=== PATIENT | female | born 1980 | race Caucasian/White ===

== ENCOUNTER 2022-08-04 11:09 | Day surgery (SDC) | payer MEDICAID, SELFPAY ==
--- NOTE | 2022-08-03 13:58 | HP.PCM_ITS ---
History and Physical Date of Admission: 08/04/22 HPI: The patient is a 41 year old female presenting for pre-operative visit. She is scheduled for Hysteroscopy D&C, Mirena IUD insertion for abnormal uterine bleeding and endometrial polyps on 08/04/22. Procedure discussed along with risks, benefits and complications. Other alternatives discussed for management. Consent form signed? Yes. ? ? PAST MEDICAL HISTORY PAST MEDICAL HISTORY Diagnosis Date ? Behcet's syndrome (HCC) ? ? Disorder of bone and cartilage, unspecified ? ? Hypertension ? ? Nodular scleritis ? ? Other cataract ? ? Left Eye ? Panuveitis ? ? Papilledema ? ? PMH - PAST MEDICAL HISTORY OF ? ? Severe thoracolumbar kyphoscoliosis ? PMH - PAST MEDICAL HISTORY OF ? ? intractable pain syndrome ? ? PAST SURGICAL HISTORY PAST SURGICAL HISTORY Procedure Laterality Date ? DELIVERY ONLY ? 10/08 ? Primary LTCS d/t spine problems ? CHOLECYSTECTOMY ? 2002 ? Laprascopic ? MIDLINE INSERTION/CONSULT ? 07/21/2015 ? ? MIDLINE INSERTION/CONSULT ? 01/26/2016 ? ? PAST SURGICAL HISTORY OF ? 09/13/06 ? Right thoracotomy, harvest of rib for rib graft, and thoracic spine exposure. ? PAST SURGICAL HISTORY OF ? 09/13/06 ? Posterior thoracic osteotomies T5-T6, T6-T7, T7-T8, T8-T9, T10- T11, T11- T12, and T12-L1; Posterior spinal fusion T4-L2; Local graft harvest; Pedicle screw placement T4, T5, T6, T7, T8, T9, T11, T12, L1, and L2. ? PAST SURGICAL HISTORY OF ? 2005 ? Anterior spinal osteotomies T4-5, T5-6, T6-7, T7-8, T8-9, T9-10, T10-11, and T11-12; Anterior spinal fusion T4-5 through T11-12; Rib graft harvest; Transthoracic approach with assistance of Thoracic Surgery. ? ? ? CURRENT MEDICATIONS Current Outpatient Medications Medication Sig Dispense Refill ? norethindrone (AYGESTIN) 5 mg tablet Take 1 tablet TID until bleeding stops, the BID x 3 days, the daily x 3 days. 35 tablet 0 ? tiZANidine (ZANAFLEX) 4 mg tablet Take 1 tablet by mouth every 8 hours as needed. 90 tablet 0 ? levothyroxine (SYNTHROID) 75 mcg tablet ? QUEtiapine XR (SEROQUEL XR) 50 mg Tb24 Take 50 mg by mouth daily at bedtime. ? ? ? azaTHIOprine (IMURAN) 50 mg tablet TAKE 2 TABLETS BY MOUTH IN THE MORNING AND 1 TABLET AT NIGHT 90 tablet 3 ? calcium carbonate/vitamin D3 (CALCIUM 600 + D ORAL) Take by mouth once daily. ? ? ? cetirizine HCl (ZYRTEC) 10 mg chewable tablet Take 10 mg by mouth once daily. ? ? ? losartan (COZAAR) 50 mg tablet ? atorvastatin (LIPITOR) 20 mg tablet Take 20 mg by mouth once daily. ? ? ? ibuprofen (MOTRIN) 600 mg tablet Take 1 tablet by mouth three times daily as needed. ? ? ? tiZANidine (ZANAFLEX) 4 mg tablet Take 1 tablet by mouth twice daily as needed. (Patient not taking: No sig reported) 60 tablet 0 ? No current facility-administered medications for this visit. ? ? ALLERGIES: Demerol [Meperidine (Pf)], Keflex [Cephalexin], Peanut Butter Flavor, and Penicillins ? PERSONAL HISTORY: SOCIAL HISTORY Social History ? Tobacco Use ? Smoking status: Never ? Smokeless tobacco: Never ? Tobacco comments: ? ? denies smoking Vaping Use ? Vaping Use: Never used Substance Use Topics ? Alcohol use: No ? Drug use: No ? FAMILY HISTORY: FAMILY HISTORY FAMILY HISTORY Adopted: Yes Family history unknown: Yes ? ? REVIEW OF SYMPTOMS: GENERAL: denies fevers or chills ENDOCRINOLOGY: has not been on steroids Cardiology : denies palpitations or chest pain Respiratory: denies SOB or cough Hematology: denies history of prolonged bleeding or easy bruising or VTE Allergy: Denies history of personal or family history of allergy to anesthesia ? PHYSICAL EXAMINATION: ? VITALS: Blood pressure 146/98, pulse 119, resp. rate 18, height 5' 6 (1.676 m), weight (!) 319 lb (144.7 kg), last menstrual period 08/02/2022, SpO2 98 %. ? GENERAL: The patient is well nourished, well hydrated in no acute distress. , The patient is oriented to time, place, and person. NECK: Supple. No lynphadenopathy, normal thyroid, no thyromegaly. LUNGS: Clear to auscultation bilaterally. no wheezes, rhonchi or rales HEART: Regular rate and rhythm, Normal heart sounds, and No murmurs or gallops ? IMPRESSION: Abnormal uterine bleeding, endometrial polyps ? PLAN: The risks/benefits/alternatives and personal involved for the planned hysteroscopy D&C with polyp resection and Mirena IUD insertion were reviewed with the patient. Her questions were answered to her satisfaction and she desires to proceed. Consent was signed. I reviewed with her postop instructions and expectations. ? ? I have reviewed and updated past medical and surgical history, medications and allergies Assessment & Plan Assessment/Plan (1) Abnormal uterine bleeding (AUB): (2) Endometrial polyp:
[2022-08-04] VITALS (7 sets, daily range): BP systolic 129–166; BP diastolic 66–81; PULSE 71–106; RESP 16–18; TEMP 36.4–37.1; O2SAT 92–99; BMI 53.1
--- NOTE | 2022-08-04 | IMM_PTH ---
PATIENT: FLORENCIO TOMPKINS LOC: [facility] [place] U#:[id number] AGE/SX: 41/F ROOM: RE08/04/[address]: Dr. Meghna Brambila MD : 1980 BED: DIS: 08/04/2022 SPEC #: [id number] RECD: 08/08/22 13:52 STATUS: JUD REQ #: [id number] LISS: 08/04/22 00:[address]: Meghna Brambila DEPT: IMMUNOHISTOCHEMISTRY RECD BY: Vonda Lane ENTERED: 08/08/22 13:53 SP TYPE: IMMUNO OTHR DR: Kadi Crow, TELERADIOLOGIST-C Tissues: Endometrium, NOS Procedures: MSH2 (add) MLH-1 (add) MSH6 (add) Anti-PMS2 (add) KI-67 (add) P53 (add) HER-2-LAWANDA (initial) PHYSICIAN & INSTITUTION [place] [id number] SPECIMEN INFORMATION: Tissue Source: Endometrial curettings Clinical Info: Abnormal uterine bleeding and endometrial polyps Specimen Number: [id number] #7 CPT code: 27773, 46002 x6 METHODOLOGY: Deparaffinized sections of prefer/formalin-fixed tissue or PAP/DQ stained slides are incubated with monoclonal/polyclonal antibodies/oligonucleotide probes. Localization is made via biotin free immunoperoxidase method. Appropriate controls are performed and reacted as expected. Results on target cell population are indicated in the following table: RESULTS: ANTIBODY / CLONE RESULT Her-2neu (CB11) negative (0) MLH-1 (M1) positive MSH2 (25D12) positive MSH6 (44) positive PMS2 (AEX7942) positive Ki-67 (30-9) negative P53 (DO-7) positive, low These tests were developed and their performance characteristics determined by [facility]. They may not have been cleared or approved by the U.S. Food and Drug Administration. The FDA has determined that such clearance or approval is not necessary. The above immunohistochemical/dualISH markers are ordered and reviewed by the Pathologist. INTERPRETATION: Endometrial curettings: Endometrial adenocarcinoma. Result of Microsatellite Instability Study: Negative (no loss of mismatch protein; no microsatellite instability detected). STEPHANIE:elmer 08/09/2022
[2022-08-04] MEDS: Lactated Ringers 1,000 ML 15 ML IV (12:28)
--- NOTE | 2022-08-04 12:55 | EMB_PTH ---
PATIENT: FLORENCIO TOMPKINS LOC: [facility] [place] U#:[id number] AGE/SX: 41/F ROOM: RE08/04/[address]: Dr. Meghna Brambila MD : 1980 BED: DIS: 08/04/2022 SPEC #: [id number] RECD: 08/04/22 15:01 STATUS: JUD HUTCHINS #: [id number] LISS: 08/04/22 12:[address]: Meghna Brambila DEPT: SURGICAL PATHOLOGY RECD BY: Katie Moya ENTERED: 08/05/22 09:54 SP TYPE: ENDOM BX/C SHRAVAN DR: Kadi Crow, SYDNEE Tissues: Endometrium, NOS Procedures: Surgery Specimen Level IV HEADER OPERATION: Hysteroscopy, D & C Symphion, polyp resection, IUD insertion PRE-OP DIAGNOSIS: Abnormal uterine bleeding and endometrial polyps TISSUE SUBMITTED: Endometrial curettings MICROSCOPIC DIAGNOSIS Endometrial curettings: Well-differentiated endometrial adenocarcinoma arising in the background of extensive complex hyperplasia with atypia. See comment. STEPHANIE:elmer 08/08/2022 COMMENT The tumor also shows focal villoglandular pattern. Extensive exogenous hormone effect is also noted. A few fragments of myometrium are also present. Immunohistochemistry ([id number]) for microsatellite instability (mismatch repair of protein) will be performed and the results will be reported separately. Case has been reviewed in consultation with Dr. Olvera who concurs with the above diagnosis. IDC:AM MICROSCOPIC DESCRIPTION Slides are reviewed. GROSS DESCRIPTION Received in fixative is one container labeled with the patient's name and designated endometrial curettings. The specimen consists of multiple irregular fragments of hayden soft tissue mixed with hayden polypoid tissue and numerous blood clots that in aggregate measure 8 x 6 x 3 cm. The entire specimen is submitted in 17 cassettes. / STEPHANIE:elmer 08/05/2022 TC:0 CPT: 58756
[2022-08-04 13:05] LABS: Internal QC Validated? YES +Cl - CLEAR BKGD; Pregnancy, Serum, hCG Quali. NEGATIVE Negative
--- NOTE | 2022-08-04 13:44 | DCINST_ITS ---
Discharge Instructions Diet Discharge Diet: No restrictions Activity Discharge Activity: Return to Normal Activity, May Shower and May Take a Tub Bath (1 week) May resume sexual activity in: 1 week Lifting Restrictions: none Dressing / Incision Call your doctor if your incision/area has: Sudden Increased Bleeding and Foul Smelling Discharge Call your doctor if you observe: Fever of 101 or Higher and Using more than 1 pad per hour (for 2 hrs in a row) Follow Up Care Please Follow Up With: Meghna Brambila MD When: as needed. Call [phone] to make an appointment or with any concerns. Test Results: Test results from this visit will be discussed in further detail at your follow- up appointment, if applicable. Discharge Plan Admission Primary Reason for Your Visit: D&C with polyp resection and Mirena IUD insertion Attending Provider: Meghna Brambila Primary Care Provider: Kadi Crow Discharge Orders/Prescriptions Prescriptions: No Action levothyroxine 50 mcg capsule 50 mcg PO DAILY quetiapine [Seroquel] 50 mg tablet 50 mg PO DAILY albuterol sulfate [Ventolin HFA] 90 mcg/actuation HFA aerosol inhaler 2 puff inhalation Q6H PRN (Reason: breathing) fluticasone propionate [Flonase Allergy Relief] 50 mcg/actuation spray,suspension 1 spray intranasal DAILY Rx Instructions: administer into each nostril atorvastatin 20 mg tablet 20 mg PO QHS cetirizine 10 mg tablet 10 mg PO DAILY losartan 50 mg tablet 50 mg PO DAILY ibuprofen 600 mg tablet 600 mg PO Q6H PRN (Reason: Pain) tizanidine 4 mg capsule 4 mg PO BID apple cider vinegar 600 mg capsule 1,600 mg PO DAILY Referrals / Follow Up: Kadi Crow, BEDSPREAD FOLDER-C [Primary Care Provider] - Disposition Disposition (needs filled in before D/C Order can be placed): Home, Self Care
[2022-08-04] MEDS: Lidocaine 1% /Epi 1:100 (20ml) 20 ML Vial (14:19)
[2022-08-04] MEDS: Lubricating Jelly 60 GM Tube 30 GM (14:19)
--- NOTE | 2022-08-04 14:56 | OP.PCM_ITS ---
Problems Associated Problem List Diagnoses (1) Endometrial polyp: (2) Abnormal uterine bleeding (AUB): Report of Operation Date of Procedure: 08/04/22 Pre-Operative Diagnosis: aub, endometrial polyps Post-Operative Diagnosis: same Surgery/Procedure Performed:: Hysteroscopy D&C with polyp resection and Mirena IUD insertion Description of Surgical Findings:: Lush thickened polypoid, ragged endometriu. NOrmal cervix and vagina Surgeon: Meghna Brambila computerized mill mill recorder: None Type of Anesthesia: MAC/Supplemental/Local Anesthesiologist: Rahat Oreilly Special Medications: none Specimen's removed: endometrial curettings and poolyp Drains: none Estimated Blood Loss (mL): 100 Fluids Replaced: 700 Description of Procedure: The patient was taken to the OR where she was prepped and draped in dorsal lithotomy position. The weighted speculum was placed in the vagina and the anterior lip of the cervix was grasped with a single-tooth tenaculum. A paracervical block was administered with [1% lidocaine with 1-100,000 epinephrine solution]. The cervix was dilated serially with Hegar dilators. The symphion hysteroscope was placed into the uterine cavity and the above findings were noted. Bilateral tubal ostia [were] identified. The hysteroscope was removed. The symphion device was readied and inserted. The polypoid appearing tissue and ragged endometrium were resected with significant device. There is still a large amount of tissue and a gentle sharp curettage was done. The Mirena IUD was then inserted in the usual sterile fashion and the strings cut to 3 cm. It should be noted that the cervix was very large and patulous minimal dilation needed to be done. I actually had some difficulty blocking off the cervical os so the hysteroscopic fluid would inflate the uterus.. The instruments were removed from the vagina. The specimen was handed off and sent to pathology. All sponge and needle counts were correct. Vaginal sweep was performed by me. The patient was awakened and taken to the recovery room in stable condition. Calculated fluid deficit is 400 cc of normal saline. Grafts/Implants Used: Mirena IUD lot [id number] exp 08/2024 Procedure Start Time: 14:19 Procedure Stop Time: 14:35 Complications none Admit VTE Documentation VTE Present on Admission: No VTE Mechan Device Prophylaxis: SCD's VTE Pharm Prophylaxis ordered?: No
== END 2022-08-04 16:28 | disposition home or self-care (01) ==
LOC: SDC 11:13 → AC 11:17
PROVIDERS: Anesthesiology; PCP Nurse Practitioner Family; Referring Provider Obstetrics & Gynecology; Visit Provider Obstetrics & Gynecology
PROC: 0UB98ZZ Excision of Uterus, Via Natural or Artificial Opening Endoscopic (ICD-10-PCS; CPT 58558; principal; 2022-08-04 12:40)
DX: C54.1 Malignant neoplasm of endometrium (principal); I10 Essential (primary) hypertension; G47.30 Sleep apnea, unspecified; E78.00 Pure hypercholesterolemia, unspecified; E03.9 Hypothyroidism, unspecified; Z79.899 Other long term (current) drug therapy; Z30.430 Encounter for insertion of intrauterine contraceptive device; Z86.718 Personal history of other venous thrombosis and embolism
CPT/HCPCS: 58558; 58300; 00952; 84703; 88305; 88341; 88342; J7120; J2405

== ENCOUNTER → 2023-07-03 | Outpatient (CLI) | payer MEDICAID, SELFPAY ==
--- NOTE | 2023-07-03 11:40 | ART_ITS ---
Reason For Study: Pain, cramping, discoloration Procedure A bilateral lower extremity continuous wave Doppler with analog waveform analysis and ankle brachial indexes. Left Segmental Pressures Left brachial= 135mmHg. Left posterior tibial artery = 166mmHg. Left dorsalis pedis artery = 152mmHg. Left digit = 102 mmHg. The left dorsalis pedis waveforms are triphasic. The left posterior tibial artery waveforms are triphasic. Right Segmental Pressures Right brachial= 155mmHg. Right posterior tibial artery = 172mmHg. Right dorsalis pedis artery = 158mmHg. Right digit = 126 mmHg. The right dorsalis pedis waveforms are triphasic. The right posterior tibial artery waveforms are triphasic. Indices The right ankle brachial index by the dorsalis pedis is 1.02. The right ankle brachial index by the posterior tibial artery is 1.11. The right digital-brachial index is 0.81. The left ankle brachial index by the dorsalis pedis is 0.98. The left ankle brachial index by the posterior tibial artery is 1.07. The left digital-brachial index is 0.66. VL/Ankle Brachial Index Interpretation Summary Right CHAD 1.11, normal. TBI and Doppler/PVR waveforms of the right leg normal a t rest. Left CHAD 1.07, normal. Doppler/PVR waveforms of the left leg normal at rest. TB I diminished, pedal/digit disease vs spasm Ordering Physician: Brenden Myrick Referring Physician: Kadi Crow Performed By: Hellen Cai RVT
== END | disposition home or self-care (01) ==
LOC: CVS 11:35
PROVIDERS: PCP Nurse Practitioner Family; Referring Provider Orthopaedic Surgery; Visit Provider Orthopaedic Surgery
DX: M17.0 Bilateral primary osteoarthritis of knee (principal)
CPT/HCPCS: 93922